=== PATIENT | male | born 1965 | race Caucasian/White ===

== ENCOUNTER 2016-06-06 08:47 | Emergency (ER) | payer BC, OTHER ==
[~2016-06-06] VITALS: Ht 157.5 cm; Wt 68.0 kg
--- NOTE | 2016-06-06 08:47 | NUR ---
DR. SHAH EXAMINING PATIENT
[2016-06-06 08:54] VITALS: BP 119/58; PULSE 68; RESP 16; TEMP 98.2; O2SAT 99
--- NOTE | 2016-06-06 08:58 | NUR ---
AMBULATED TO BED 1
--- NOTE | 2016-06-06 09:00 | NUR ---
NOTED APPROX 2X2cm HERNIA NOTED REDUCED WITH PAIN ON PALPATION PAIN 10/10 NON RADIATING STATES HE WAS LIFING A PATIENT AND FELT THE PAIN GET WORST.
[2016-06-06 10:05] VITALS: BP 115/65; PULSE 85; RESP 16; TEMP 98.2; O2SAT 99
--- NOTE | 2016-06-06 10:06 | NUR ---
Patient given written and verbal discharge instructions and verbalizes understanding. ER MD discussed with patient the results and treatment provided. Given copies of tests performed in ER. Patient in stable condition. ID arm band removed. Rx of NONE given. Patient educated on pain management and to follow up with PMD. Pain Scale 0/10 Opportunity for questions provided and answered.
== END 2016-06-06 10:05 | disposition home or self-care (01) ==
LOC: SED 08:47
DX: K42.9 Umbilical hernia without obstruction or gangrene (principal)
CPT/HCPCS: 99284

== ENCOUNTER 2018-03-17 09:06 | Emergency (ER) | payer BC, OTHER ==
[~2018-03-17] VITALS: Ht 157.5 cm; Wt 68.0 kg
[2018-03-17 09:11] VITALS: BP_SYST 135
--- NOTE | 2018-03-17 09:16 | NUR ---
ambulated to bed 3 pt declined pain meds
--- NOTE | 2018-03-17 09:20 | NUR ---
ER at bedside examining patient.
--- NOTE | 2018-03-17 10:04 | NUR ---
Pt refused pain medication d/t having no ride home.
[2018-03-17] MEDS ORDERED: KETOROLAC TROMETHAMINE 60 MG/2 ML VIAL IM ONE (10:45)
--- NOTE | 2018-03-17 10:47 | NUR ---
Pain medication was given, pt tolerated well
--- NOTE | 2018-03-17 11:15 | NUR ---
Pt went to MRI in stable condition
--- NOTE | 2018-03-17 12:10 | NUR ---
Pt returned from MRI in stable condition
[2018-03-17 12:22] VITALS: BP_SYST 130
--- NOTE | 2018-03-17 12:22 | NUR ---
Patient given written and verbal discharge instructions and verbalizes understanding. ER MD discussed with patient the results and treatment provided. Patient in stable condition. ID arm band removed. Rx of meloxicam given. Patient educated on pain management and to follow up with PMD. Pain Scale 2. Opportunity for questions provided and answered. Medication side effect fact sheet provided.
== END 2018-03-17 12:22 | disposition home or self-care (01) ==
LOC: SED 09:06
DX: S83.91XA Sprain of unspecified site of right knee, initial encounter (principal); R03.0 Elevated blood-pressure reading, without diagnosis of hypertension; X50.9XXA Other and unspecified overexertion or strenuous movements or postures, initial encounter; Y93.89 Activity, other specified; Y92.89 Other specified places as the place of occurrence of the external cause; Y99.8 Other external cause status
CPT/HCPCS: 73721; 96372; 99284; J1885

== ENCOUNTER 2019-05-03 13:00 | Emergency (ER) | payer BC, OTHER ==
[~2019-05-03] VITALS: Ht 157.5 cm; Wt 68.0 kg
[2019-05-03 13:00] VITALS: BP_SYST 136
--- NOTE | 2019-05-03 13:00 | NUR ---
BROUGHT BACK TO BED #1 AND TRIAGED. BY KANDI JORDAN, REPORT GIVEN TO ELDA
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
[2019-05-03 14:06] VITALS: BP_SYST 136
--- NOTE | 2019-05-03 14:07 | NUR ---
REASSESSMENT BY ERMD; ACI GIVEN AND PATIENT INDICATED FULL UNDERSTANDING; DISCHARGED AMBULATORY; UNCHANGED
== END 2019-05-03 14:06 | disposition home or self-care (01) ==
LOC: SED 13:00
DX: S60.012A Contusion of left thumb without damage to nail, initial encounter (principal); W22.8XXA Striking against or struck by other objects, initial encounter; Y93.89 Activity, other specified; Y92.89 Other specified places as the place of occurrence of the external cause; Y99.8 Other external cause status
CPT/HCPCS: 99283

== ENCOUNTER 2020-02-29 09:33 | Emergency (ER) | payer BC, OTHER ==
[~2020-02-29] VITALS: Ht 157.5 cm; Wt 68.0 kg
[2020-02-29 09:33] VITALS: BP_SYST 131
--- NOTE | 2020-02-29 09:33 | NUR ---
PLACED IN BED 1,
--- NOTE | 2020-02-29 09:35 | NUR ---
DR. CHOI AT BEDSIDE
[2020-02-29 09:48] VITALS: BP_SYST 131
--- NOTE | 2020-02-29 09:48 | NUR ---
Patient given written and verbal discharge instructions and verbalizes understanding. ER MD discussed with patient the results and treatment provided. Patient in stable condition. ID arm band removed. Rx of NONE given. Patient educated on pain management and to follow up with PMD. Pain Scale 2/10 DECLINE PAIN MEDICATIONS Opportunity for questions provided and answered. Medication side effect fact sheet provided.
== END 2020-02-29 09:48 | disposition home or self-care (01) ==
LOC: SED 09:33
DX: S05.02XA Injury of conjunctiva and corneal abrasion without foreign body, left eye, initial encounter (principal); H11.32 Conjunctival hemorrhage, left eye; W51.XXXA Accidental striking against or bumped into by another person, initial encounter; Y93.89 Activity, other specified; Y92.89 Other specified places as the place of occurrence of the external cause; Y99.8 Other external cause status
CPT/HCPCS: 99281

== ENCOUNTER 2020-06-01 06:47 | Outpatient (CLI) | payer BC, OTHER ==
[2020-06-01 07:42] LABS: BASOPHILS % (AUTO) 0.5 % (0.0-2.0); EOSINOPHILS # (AUTO) 0.2 K/uL (0.0-0.4); EOSINOPHILS % (AUTO) 2.9 % (0.0-4.0); HEMATOCRIT 45.3 % (36-54); HEMOGLOBIN 15.1 g/dL (14.0-18.0); LYMPHOCYTES # (AUTO) 1.6 K/uL (1.0-5.5); LYMPHOCYTES % (AUTO) 28.4 % (20.5-51.5); MEAN CORPUSCULAR HEMOGLOBIN 30 pg (27-31); MEAN CORPUSCULAR HGB CONC 33 % (32-36); MEAN CORPUSCULAR VOLUME 90 fL (79.0-98.0); MONOCYTES # (AUTO) 0.4 K/uL (0.0-1.0); MONOCYTES % (AUTO) 7.6 % (1.7-9.3); NEUTROPHILS # (AUTO) 3.5 K/uL (1.8-7.7); NEUTROPHILS % (AUTO) 60.6 % (40.0-70.0); PLATELET COUNT (AUTO) 191 K/uL (130-430); RED BLOOD CELL COUNT(AUTO) 5.04 MIL/uL (4.2-6.2); RED CELL DISTRIBUTION WIDTH 13.7 % (9.0-15.0); WHITE BLOOD COUNT (AUTO) 5.7 K/uL (4.8-10.8)
[2020-06-01 08:39] LABS: ALANINE AMINOTRANSFERASE 59 U/L (12-78); ANION GAP 10 (5-15); ASPARTATE AMINOTRANSFERASE 21 U/L (10-37); CALCIUM 8.9 mg/dL (8.4-11.0); CHLORIDE 106 mmol/L (98-107); CREATININE 1.08 mg/dL (0.55-1.30); GLUCOSE 99 mg/dL (70-99); SODIUM SERUM 143 mmol/L (136-145); TOTAL BILIRUBIN 0.4 mg/dL (0.0-1.0); UREA NITROGEN, BLOOD 18 mg/dL (8-21)
[2020-06-01 08:42] LABS: GFR AFRICAN AMERICAN 91 mL/min (>90)
[2020-06-01 09:11] LABS: C-REACTIVE PROTEIN QUANT < 0.2 mg/dL (0-0.5); CHOLESTEROL 259 mg/dL (<200); HDL CHOLESTEROL 68 mg/dL (>45); LDL CHOLESTEROL 176 mg/dL (<100); TRIGLYCERIDES 142 mg/dL (30-150)
== END 2020-06-01 20:19 | disposition home or self-care (01) ==
LOC: SLB 06:47
PROVIDERS: ATTEND Emergency Medicine
DX: Z00.00 Encounter for general adult medical examination without abnormal findings (principal)
CPT/HCPCS: 36415; 80053; 80061; 84153; 85025; 86140

== ENCOUNTER 2021-02-06 09:43 | Outpatient (CLI) | payer BC, OTHER | END 2021-02-06 19:02 | disposition home or self-care (01) | LOC: SRD 09:43 | PROVIDERS: ATTEND Internal Medicine | DX: J18.9 Pneumonia, unspecified organism (principal) | CPT/HCPCS: 71046-TC ==

== ENCOUNTER 2021-04-02 10:30 | Emergency (ER) | payer BC, OTHER, SELFPAY ==
[~2021-04-02] VITALS: Ht 157.5 cm; Wt 68.0 kg
[2021-04-02 10:33] VITALS: BP_SYST 125
--- NOTE | 2021-04-02 10:40 | NUR ---
Pt to room 4. C/o mechanical fall yesterday. A&Ox4. SKin intact. Has no pain. Pupils PERRLA. No LOC. Ambulatory with steady gait. VSS. No sob.
--- NOTE | 2021-04-02 10:43 | NUR ---
ER physician at bedside.
[2021-04-02 11:15] VITALS: BP_SYST 130
--- NOTE | 2021-04-02 11:16 | NUR ---
Patient given written and verbal discharge instructions and verbalizes understanding. ER MD discussed with patient the results and treatment provided. Patient in stable condition. ID arm band removed. Patient educated on pain management and to follow up with PMD. Pain Scale . Opportunity for questions provided and answered. Medication side effect fact sheet provided. VSS. AMbulatory. Skin intact. Pt has no c/o
== END 2021-04-02 11:15 | disposition home or self-care (01) ==
LOC: SED 10:30
DX: S92.351A Displaced fracture of fifth metatarsal bone, right foot, initial encounter for closed fracture (principal); W05.1XXA Fall from non-moving nonmotorized scooter, initial encounter; Y93.89 Activity, other specified; Y92.89 Other specified places as the place of occurrence of the external cause; Y99.8 Other external cause status
CPT/HCPCS: 73564; 99284